=== PATIENT | female | born 1995 | race Hispanic/Latino ===

== ENCOUNTER 2025-04-21 01:43 | Inpatient (IN) | payer OTHER ==
[~2025-04-21] VITALS: Ht 170.2 cm; Wt 86.2 kg
[2025-04-21] MEDS ORDERED: LIDOCAINE HCL 1% 30 ML SDV INJ PRN (02:00)
[2025-04-21] MEDS ORDERED: TERBUTALINE SULFATE 1 MG/ML AMP SUB-Q PRN (02:00)
[2025-04-21] MEDS ORDERED: LACTATED RINGER'S 1,000 ML IV SCH (02:00)
[2025-04-21] MEDS ORDERED: CALCIUM CARBONATE 500 MG CHEW PO PRN ×2 (02:00→08:00)
[2025-04-21] MEDS ORDERED: LACTATED RINGER'S 1,000 ML IV PRN (02:00)
[2025-04-21] MEDS ORDERED: OXYTOCIN/0.9 % SODIUM CHLORIDE 30 UNITS/500 ML BAG IV SCH (02:00)
[2025-04-21] MEDS ORDERED: MAGNESIUM HYDROXIDE/AL HYDROX 30 ML CUP PO PRN ×2 (02:00→08:00)
[2025-04-21 02:13] LABS: MCH 29.9 PG (25.6-32.2); MCHC 34.1 g/dL (32.2-35.5); MCV 87.6 fL (79.4-94.8); RBC 4.45 M/uL (3.93-5.22)
[2025-04-21 02:17] LABS: AMPHETAMINES, URINE NEGATIVE (NEGATIVE); BARBITURATES, URINE NEGATIVE (NEGATIVE); BENZODIAZEPINE, URINE NEGATIVE (NEGATIVE); CANNABINOID, URINE NEGATIVE (NEGATIVE); COCAINE, URINE NEGATIVE (NEGATIVE); ECSTASY, URINE NEGATIVE (NEGATIVE); FENTANYL, URINE NEGATIVE (NEGATIVE); METHADONE, URINE NEGATIVE (NEGATIVE); OPIATES, URINE NEGATIVE (NEGATIVE); OXYCODONE, URINE NEGATIVE (NEGATIVE); PHENCYCLIDINE, URINE NEGATIVE (NEGATIVE)
[2025-04-21 02:39] VITALS: BP 108/71
[2025-04-21 02:50] LABS: ABO O; ANTIBODY SCREEN NEGATIVE; RH POSITIVE
[2025-04-21] MEDS ORDERED: OXYTOCIN/0.9 % SODIUM CHLORIDE 500 ML IV SCH ×2 (06:30→08:00)
[2025-04-21] MEDS ORDERED: METHYLERGONOVINE MALEATE 0.2 MG/ML AMP IM ONE (07:45)
[2025-04-21] MEDS ORDERED: WITCH HAZEL/GLYCERIN 1 EA PAD TOP PRN (08:00)
[2025-04-21] MEDS ORDERED: MAGNESIUM HYDROXIDE 30 ML UDC PO PRN (08:00)
[2025-04-21] MEDS ORDERED: IBUPROFEN 600 MG TAB PO SCH (08:00)
[2025-04-21] MEDS ORDERED: HYDROCORTISONE ACETATE 25 MG SUPP PR PRN (08:00)
[2025-04-21] MEDS ORDERED: ACETAMINOPHEN 325 MG TAB PO SCH (08:00)
[2025-04-21] MEDS ORDERED: BENZOCAINE 60 ML AEROSOL TOP PRN (08:00)
[2025-04-21] MEDS ORDERED: SENNOSIDES/DOCUSATE 1 EA TAB PO SCH (09:00)
== END 2025-04-22 10:31 | disposition home or self-care (01) | DRG 807 ==
LOC: FBC 01:43 → FBCO 16:18 → EDSTATUS 16:23 → FBC 16:24
PROVIDERS: ADMIT Obstetrics & Gynecology; ATTEND Obstetrics & Gynecology
PROC: 10E0XZZ Delivery of Products of Conception, External Approach (ICD-10-PCS; principal; 2025-04-21)
PROC: 0KQM0ZZ Repair Perineum Muscle, Open Approach (ICD-10-PCS; 2025-04-21)
DX: O48.0 Post-term pregnancy (principal); Z37.0 Single live birth; O70.1 Second degree perineal laceration during delivery; O24.429 Gestational diabetes mellitus in childbirth, unspecified control; Z3A.40 40 weeks gestation of pregnancy; Z88.0 Allergy status to penicillin
CPT/HCPCS: 36415; 80307; 85027; 86850; 86900; 86901; A9270; J2210